=== PATIENT | female | born 2005 | race Two or more races ===

== ENCOUNTER 2025-01-22 18:12 | Inpatient (IN) | payer MEDICAID ==
[~2025-01-22] VITALS: Ht 160 cm; Wt 102.7 kg
[2025-01-22 18:47] LABS: BASOPHILS % (AUTO) 0.3 % (0-1); EOSINOPHILS # (AUTO) 0.3 X10'3 (0-0.9); EOSINOPHILS % (AUTO) 5.5 % (0-6); HEMATOCRIT 37.3 % (35.0-45.0); HEMOGLOBIN 12.3 g/dl (12.0-16.0); LYMPHOCYTES # (AUTO) 1.2 X10'3 (1.1-4.8); LYMPHOCYTES % (AUTO) 19.8 % (21-51); MEAN CORPUSCULAR HEMOGLOBIN 29.2 PG (27.0-31.0); MEAN CORPUSCULAR HGB CONC 32.9 g/dL (33.0-36.5); MEAN CORPUSCULAR VOLUME 88.6 FL (78-98); MEAN PLATELET VOLUME 8.6 FL (7.4-10.4); MONOCYTES # (AUTO) 0.3 X10'3 (0-0.9); MONOCYTES % (AUTO) 4.6 % (2-12); NEUTROPHILS # (AUTO) 4.4 X10'3 (1.8-7.7); NEUTROPHILS % (AUTO) 69.8 % (42-75); PLATELET COUNT 221 X10'3 (140-440); RED BLOOD COUNT 4.21 X10'6 (4.20-5.60); RED CELL DISTRIBUTION WIDTH 12.9 % (11.5-14.5); WHITE BLOOD COUNT 6.3 X10'3 (4.5-11.0)
[2025-01-22 19:04] LABS: ALANINE AMINOTRANSFERASE 269 U/L (12-78); ALBUMIN 3.3 G/DL (3.4-5.0); ALKALINE PHOSPHATASE 319 IU/L (20-180); ANION GAP 17 (8-16); ASPARTATE AMINO TRANSFERASE 125 U/L (10-37); BILIRUBIN,TOTAL 3.5 MG/DL (0.1-1.0); BLOOD UREA NITROGEN 12 MG/DL (7-18); BUN/CREATININE RATIO 16.2 (10.0-20.0); CHLORIDE 105 MMOL/L (99-107); CREATININE 0.74 MG/DL (0.40-0.90); GLUCOSE 50 MG/DL (70-104); LIPASE 38 U/L (16-77); POTASSIUM 3.9 MMOL/L (3.5-5.1); SODIUM 139 MMOL/L (135-145); TOTAL CARBON DIOXIDE 16.7 MMOL/L (24-32); TOTAL PROTEIN 6.5 G/DL (6.4-8.2); eCRCL 101 ML/MIN; eGFR > 90 ML/MIN
[2025-01-22] MEDS: dextrose 50%-water 50ml dispensing syringe IV ONE ×2 (20:39→22:58)
[2025-01-22 20:56] LABS: HCG SERUM QL NEGATIVE
[2025-01-22] MEDS ORDERED: acetaminophen 325mg tablet PO PRN ×2 (21:00)
[2025-01-22] MEDS ORDERED: potassium Cl 20 mEq SR tablet PO PRN ×2 (21:00)
[2025-01-22] MEDS ORDERED: ondansetron/PF 4mg/2ml inj IV PRN (21:00)
[2025-01-22] MEDS ORDERED: mag hydrox/Alum hydrox/simeth 30ml oral suspension PO PRN (21:00)
[2025-01-22] MEDS ORDERED: magnesium sulf-water 4G/100mL 100 ML IV PRN (21:00)
[2025-01-22] MEDS ORDERED: magnesium hydroxide 30ml (MOM) UD suspension PO PRN (21:00)
[2025-01-22] MEDS ORDERED: magnesium sulf-water 2g/50mL 50 ML IV PRN (21:00)
[2025-01-22] MEDS ORDERED: potassium Cl 40MEQ/1/2NS 520ml 520 ML IV PRN (21:00)
[2025-01-22 21:30] LABS: CHOL/HDL RATIO 3.7 (0.00-4.99); CHOLESTEROL 212 MG/DL (0-200); HDL CHOLESTEROL 57 MG/DL (35-60); LDL CHOLESTEROL 120 MG/DL (50-100); TRIGLYCERIDES 135 MG/DL (20-135)
[2025-01-22] MEDS ORDERED: glucagon, human recombinant 1mg kit SUBCUT PRN (21:30)
[2025-01-22] MEDS ORDERED: dextrose 50%-water 50ml dispensing syringe IV PRN (21:30)
[2025-01-22] MEDS ORDERED: DEXTROSE 15 GM of carb/4 tabs (each vial/BOTTLE has 4 tablets) PO PRN ×2 (21:30)
[2025-01-22] MEDS ORDERED: PNV1TABL87 PO (21:34)
[2025-01-22 21:38] LABS: HEMOGLOBIN A1C 4.5 % (4.5-6.2)
[2025-01-22 22:20] VITALS: BP 118/62; PULSE 72; RESP 16; TEMP 97.9; O2SAT 97
[2025-01-22] MEDS: dextrose 50%-water 50ml dispensing syringe IV PRN (23:02)
[2025-01-22] MEDS: normal saline 1000ml 1,000 ML IV SCH (23:16)
[2025-01-23] VITALS (14 sets, daily range): BP systolic 104–140; BP diastolic 50–79; PULSE 45–101; RESP 12–18; TEMP 97.6–98.3; O2SAT 97–100
[2025-01-23 02:45] LABS: BASOPHILS % (AUTO) 0.3 % (0-1); EOSINOPHILS # (AUTO) 0.8 X10'3 (0-0.9); EOSINOPHILS % (AUTO) 13.7 % (0-6); HEMATOCRIT 36.1 % (35.0-45.0); HEMOGLOBIN 12.2 g/dl (12.0-16.0); LYMPHOCYTES # (AUTO) 1.9 X10'3 (1.1-4.8); LYMPHOCYTES % (AUTO) 31.6 % (21-51); MEAN CORPUSCULAR HEMOGLOBIN 29.7 PG (27.0-31.0); MEAN CORPUSCULAR HGB CONC 33.9 g/dL (33.0-36.5); MEAN CORPUSCULAR VOLUME 87.8 FL (78-98); MEAN PLATELET VOLUME 8.5 FL (7.4-10.4); MONOCYTES # (AUTO) 0.5 X10'3 (0-0.9); MONOCYTES % (AUTO) 7.7 % (2-12); NEUTROPHILS # (AUTO) 2.9 X10'3 (1.8-7.7); NEUTROPHILS % (AUTO) 46.7 % (42-75); PLATELET COUNT 218 X10'3 (140-440); RED BLOOD COUNT 4.11 X10'6 (4.20-5.60); RED CELL DISTRIBUTION WIDTH 13.1 % (11.5-14.5); WHITE BLOOD COUNT 6.2 X10'3 (4.5-11.0)
[2025-01-23 03:10] LABS: ALANINE AMINOTRANSFERASE 235 U/L (12-78); ALBUMIN 3.3 G/DL (3.4-5.0); ALKALINE PHOSPHATASE 303 IU/L (20-180); ANION GAP 13 (8-16); ASPARTATE AMINO TRANSFERASE 95 U/L (10-37); BILIRUBIN,TOTAL 2.5 MG/DL (0.1-1.0); BLOOD UREA NITROGEN 7 MG/DL (7-18); BUN/CREATININE RATIO 9.6 (10.0-20.0); CALCIUM 8.2 MG/DL (8.5-10.1); CHLORIDE 105 MMOL/L (99-107); CREATININE 0.73 MG/DL (0.40-0.90); GLUCOSE 52 MG/DL (70-104); MAGNESIUM 1.4 MG/DL (1.5-2.4); POTASSIUM 3.6 MMOL/L (3.5-5.1); SODIUM 138 MMOL/L (135-145); TOTAL CARBON DIOXIDE 19.8 MMOL/L (24-32); TOTAL PROTEIN 6.6 G/DL (6.4-8.2); eCRCL 103 ML/MIN; eGFR > 90 ML/MIN
[2025-01-23 03:14] LABS: ACETAMINOPHEN < 2.0 UG/ML (10-30)
[2025-01-23] MEDS: dextrose 50%-water 50ml dispensing syringe IV ONE (03:20)
[2025-01-23 05:22] LABS: BILIRUBIN,URINE SMALL (Neg); CLARITY,URINE CLEAR (Clear); COLOR,URINE YELLOW (Yellow); GLUCOSE, URINE 100 mg/dl (Neg); KETONES,URINE >=80 mg/dl (Neg); LEUKOCYTE ESTERASE ,URINE SMALL (Neg); NITRITES, URINE NEGATIVE (Neg); OCCULT BLOOD,URINE MODERATE (Neg); PROTEIN,URINE NEGATIVE (Neg); UROBILINOGEN,URINE 0.2 E.U/dL (0.2-1.0)
[2025-01-23 05:25] LABS: UA COLLECTION TYPE NON-SPECIFIED
[2025-01-23 05:30] LABS: BACTERIA,URINE 1+ /HPF (Neg); RBC,URINE 50-100 /HPF (0-2); SQUAMOUS EPITHELIAL CELL,UR MANY /LPF (FEW); WBC,URINE 50-100 /HPF (0-4)
[2025-01-23 05:31] LABS: URINE AMPHETAMINE SCREEN NEGATIVE (Neg); URINE BARBITUATE SCREEN NEGATIVE (Neg); URINE BENZODIAZEPINES SCREEN NEGATIVE (Neg); URINE CANNABINOID SCREEN NEGATIVE (Neg); URINE COCAINE SCREEN NEGATIVE (Neg); URINE METHADONE SCREEN NEGATIVE (Neg); URINE OPIATE SCREEN NEGATIVE (Neg); URINE PHENCYCLIDINE SCREEN NEGATIVE (Neg)
[2025-01-23] MEDS ORDERED: glucagon, human recombinant 1mg kit ONE (07:54)
[2025-01-23] MEDS ORDERED: iohexol 300mg/ml 100ml inj. ONE (07:54)
[2025-01-23] MEDS ORDERED: levoFLOXACIN-Levaquin 500mg/D5 0 ML IV ONE (07:54)
[2025-01-23] MEDS: CefTRIAXone/D5W-Rocephin 1gm 50 ML IV SCH (08:00)
[2025-01-23] MEDS: K and/or MAG REPLACEMENT MC SCH (08:00)
[2025-01-23] MEDS: ringers solution, lacted 1,000 ML IV SCH (09:15)
[2025-01-23] MEDS ORDERED: ondansetron/PF 4mg/2ml inj IV PRN (09:15)
[2025-01-23] MEDS ORDERED: acetaminophen 1,000mg/100ml IV 100 ML IV PRN (09:15)
[2025-01-23] MEDS ORDERED: morphine 4 MG/ML inj SYRINge IV PRN (09:15)
[2025-01-23] MEDS ORDERED: meperidine/PF 100mg/ml syringe IV PRN ×3 (09:15)
[2025-01-23] MEDS ORDERED: proCHLORperazine 10 MG/2 ml inj IV PRN (09:15)
[2025-01-23] MEDS ORDERED: hydrALAZINE 20mg/ml inj. IV PRN (09:15)
[2025-01-23] MEDS ORDERED: labetalol 20mg/4ml (5mg/ml) syringe IV PRN (09:15)
[2025-01-23] MEDS ORDERED: morphine 2 MG/ML inj. syringe IV PRN (09:15)
[2025-01-23] MEDS ORDERED: fentaNYL/PF 50MCG/1 ML 2ML syringe ONE (10:04)
[2025-01-23] MEDS ORDERED: iohexol 300 MG/1 ML 50ml polymer ONE (10:18)
[2025-01-23] MEDS ORDERED: sevoflurane 250ml liquid IH ONE ×2 (10:21)
[2025-01-23] MEDS ORDERED: midazolam 1 mg/ML 2ml injection ONE (10:49)
[2025-01-23] MEDS ORDERED: propofol inj 20 ML IV ONE (10:50)
[2025-01-23] MEDS ORDERED: LIDOcaine 2% (20mg/ml) 5ml vial ONE (10:50)
[2025-01-23] MEDS ORDERED: rocuronium 10mg/ml inj IV ONE (10:50)
[2025-01-23] MEDS ORDERED: dexamethasone sod phosphate 4mg/ml inj. ONE (10:50)
[2025-01-23] MEDS ORDERED: ondansetron/PF 4mg/2ml inj ONE (10:51)
[2025-01-23] MEDS ORDERED: neostigmine methylsulfate 1 MG/ML 10ml vial ONE (11:02)
[2025-01-23] MEDS ORDERED: glycopyrrolate 0.2mg/ml inj ONE (11:02)
[2025-01-23] MEDS: magnesium Cl slow-release 64mg tablet PO PRN (12:47)
[2025-01-23] MEDS: metroNIDAZOLE-Flagyl 500mg/NS 100 ML IV SCH (12:58)
[2025-01-24] VITALS (22 sets, daily range): BP systolic 106–123; BP diastolic 48–72; PULSE 49–84; RESP 10–21; TEMP 98–98.8; O2SAT 96–100
[2025-01-24 06:02] LABS: BASOPHILS % (AUTO) 0.1 % (0-1); EOSINOPHILS # (AUTO) 0.2 X10'3 (0-0.9); EOSINOPHILS % (AUTO) 3.9 % (0-6); HEMOGLOBIN 11.9 g/dl (12.0-16.0); LYMPHOCYTES # (AUTO) 1.5 X10'3 (1.1-4.8); LYMPHOCYTES % (AUTO) 25.3 % (21-51); MEAN CORPUSCULAR HEMOGLOBIN 29.1 PG (27.0-31.0); MEAN PLATELET VOLUME 9.2 FL (7.4-10.4); MONOCYTES # (AUTO) 0.6 X10'3 (0-0.9); MONOCYTES % (AUTO) 9.2 % (2-12); NEUTROPHILS # (AUTO) 3.7 X10'3 (1.8-7.7); NEUTROPHILS % (AUTO) 61.5 % (42-75); PLATELET COUNT 239 X10'3 (140-440); RED BLOOD COUNT 4.09 X10'6 (4.20-5.60)
[2025-01-24 06:15] LABS: APTT 26 SECONDS (22-32); INR 1.1 INR; PROTHROMBIN TIME 11.4 SECONDS (9.0-12.0)
[2025-01-24 06:21] LABS: ALANINE AMINOTRANSFERASE 169 U/L (12-78); ALBUMIN 3.1 G/DL (3.4-5.0); ALBUMIN/GLOBULIN RATIO 0.9 (1.1-1.5); ALKALINE PHOSPHATASE 247 IU/L (20-180); ANION GAP 11 (8-16); ASPARTATE AMINO TRANSFERASE 45 U/L (10-37); BILIRUBIN,TOTAL 1.1 MG/DL (0.1-1.0); BLOOD UREA NITROGEN 8 MG/DL (7-18); BUN/CREATININE RATIO 10.8 (10.0-20.0); CALCIUM 8.1 MG/DL (8.5-10.1); CHLORIDE 107 MMOL/L (99-107); CREATININE 0.74 MG/DL (0.40-0.90); GLUCOSE 91 MG/DL (70-104); MAGNESIUM 1.2 MG/DL (1.5-2.4); POTASSIUM 3.7 MMOL/L (3.5-5.1); SODIUM 141 MMOL/L (135-145); TOTAL CARBON DIOXIDE 23.2 MMOL/L (24-32); TOTAL PROTEIN 6.5 G/DL (6.4-8.2); eCRCL 101 ML/MIN; eGFR > 90 ML/MIN
[2025-01-24 07:49] LABS: BILIRUBIN,URINE SMALL (Neg); CLARITY,URINE SLIGHTLY CLOUDY (Clear); COLOR,URINE YELLOW (Yellow); GLUCOSE, URINE NEGATIVE (Neg); KETONES,URINE >=80 mg/dl (Neg); LEUKOCYTE ESTERASE ,URINE SMALL (Neg); NITRITES, URINE NEGATIVE (Neg); OCCULT BLOOD,URINE NEGATIVE (Neg); PROTEIN,URINE NEGATIVE (Neg); UROBILINOGEN,URINE 0.2 E.U/dL (0.2-1.0)
[2025-01-24 08:20] LABS: UA COLLECTION TYPE NON-SPECIFIED
[2025-01-24 08:24] LABS: BACTERIA,URINE FEW /HPF (Neg); MUCUS STRANDS NONE SEEN /LPF (Neg); RBC,URINE NONE SEEN /HPF (0-2); SQUAMOUS EPITHELIAL CELL,UR MANY /LPF (FEW)
[2025-01-24 10:28] LABS: BILIRUBIN,URINE MODERATE (Neg); CLARITY,URINE CLOUDY (Clear); COLOR,URINE YELLOW (Yellow); GLUCOSE, URINE NEGATIVE (Neg); KETONES,URINE >=80 mg/dl (Neg); LEUKOCYTE ESTERASE ,URINE SMALL (Neg); NITRITES, URINE NEGATIVE (Neg); OCCULT BLOOD,URINE NEGATIVE (Neg); PROTEIN,URINE NEGATIVE (Neg); UROBILINOGEN,URINE 0.2 E.U/dL (0.2-1.0)
[2025-01-24 10:36] LABS: UA COLLECTION TYPE CLN CATCH MIDSTREAM
[2025-01-24 10:43] LABS: RBC,URINE NONE SEEN /HPF (0-2)
[2025-01-24 10:44] LABS: BACTERIA,URINE 1+ /HPF (Neg)
[2025-01-24 10:45] LABS: SQUAMOUS EPITHELIAL CELL,UR MANY /LPF (FEW)
[2025-01-24 10:46] LABS: TRANSITIONAL EPI CELLS,URINE FEW /HPF
[2025-01-24 10:47] LABS: RENAL CELLS, URINE FEW /HPF
[2025-01-24] MEDS: INDOCYANINE GREEN 25 MG/10 ML VIAL IV ONE (16:10)
[2025-01-24] MEDS ORDERED: LIDOcaine 1% (10mg/ml)w/preservative inj. 20ml MDV ONE (16:50)
[2025-01-24] MEDS ORDERED: BUPIVAcaine 2.5mg/ml inj 50ml vial (contains preservative) ONE (16:50)
[2025-01-24] MEDS: ringers solution, lacted 1,000 ML IV SCH (18:05)
[2025-01-24] MEDS ORDERED: HYDROmorphone/PF 0.2 MG/ML SYRINGE IV PRN ×2 (18:05)
[2025-01-24] MEDS ORDERED: morphine 4 MG/ML inj SYRINge IV PRN (18:05)
[2025-01-24] MEDS ORDERED: ondansetron/PF 4mg/2ml inj IV PRN (18:05)
[2025-01-24] MEDS ORDERED: morphine 2 MG/ML inj. syringe IV PRN (18:05)
[2025-01-24] MEDS ORDERED: sevoflurane 250ml liquid IH ONE (18:44)
[2025-01-24] MEDS ORDERED: fentaNYL/PF 50MCG/1 ML 2ML syringe ONE (18:45)
[2025-01-24] MEDS ORDERED: midazolam 1 mg/ML 2ml injection ONE (18:45)
[2025-01-24] MEDS ORDERED: propofol inj 20 ML IV ONE (18:45)
[2025-01-24] MEDS ORDERED: rocuronium 10mg/ml inj IV ONE (18:46)
[2025-01-24] MEDS ORDERED: ceFAZolin 1000mg inj ONE ×2 (19:00)
[2025-01-24] MEDS ORDERED: dexamethasone sod phosphate 4mg/ml inj. ONE (19:41)
[2025-01-24] MEDS ORDERED: ondansetron/PF 4mg/2ml inj ONE (19:41)
[2025-01-24] MEDS ORDERED: neostigmine methylsulfate 1 MG/ML 10ml vial ONE (19:43)
[2025-01-24] MEDS ORDERED: glycopyrrolate 0.2mg/ml inj ONE (19:43)
[2025-01-24] MEDS ORDERED: naloxone 0.4 mg/ml inj IV PRN (20:10)
[2025-01-24] MEDS ORDERED: oxyCODONE/APAP 5-325mg tablet PO PRN (20:10)
[2025-01-24] MEDS: acetaminophen 1,000mg/100ml IV 100 ML IV PRN (20:26)
[2025-01-24] MEDS: ketorolac trometh 30MG/ML vial 30 MG/ML VIAL IV ONE (20:27)
[2025-01-25 00:45] VITALS: BP 116/58; PULSE 52; RESP 18; TEMP 98.6; O2SAT 97
[2025-01-25 05:22] LABS: BASOPHILS % (AUTO) 0.2 % (0-1); EOSINOPHILS % (AUTO) 0.1 % (0-6); HEMATOCRIT 36.8 % (35.0-45.0); HEMOGLOBIN 12.2 g/dl (12.0-16.0); LYMPHOCYTES # (AUTO) 0.9 X10'3 (1.1-4.8); LYMPHOCYTES % (AUTO) 14.2 % (21-51); MEAN CORPUSCULAR HEMOGLOBIN 29.3 PG (27.0-31.0); MEAN CORPUSCULAR HGB CONC 33.2 g/dL (33.0-36.5); MEAN CORPUSCULAR VOLUME 88.3 FL (78-98); MEAN PLATELET VOLUME 9.1 FL (7.4-10.4); MONOCYTES # (AUTO) 0.2 X10'3 (0-0.9); MONOCYTES % (AUTO) 2.8 % (2-12); NEUTROPHILS # (AUTO) 5.3 X10'3 (1.8-7.7); NEUTROPHILS % (AUTO) 82.7 % (42-75); PLATELET COUNT 235 X10'3 (140-440); RED BLOOD COUNT 4.17 X10'6 (4.20-5.60); RED CELL DISTRIBUTION WIDTH 13.5 % (11.5-14.5); WHITE BLOOD COUNT 6.4 X10'3 (4.5-11.0)
[2025-01-25 05:39] LABS: ALANINE AMINOTRANSFERASE 144 U/L (12-78); ALBUMIN 3.1 G/DL (3.4-5.0); ALKALINE PHOSPHATASE 221 IU/L (20-180); ANION GAP 11 (8-16); ASPARTATE AMINO TRANSFERASE 59 U/L (10-37); BILIRUBIN,TOTAL 0.8 MG/DL (0.1-1.0); BLOOD UREA NITROGEN 9 MG/DL (7-18); CALCIUM 8.3 MG/DL (8.5-10.1); CHLORIDE 109 MMOL/L (99-107); CREATININE 0.69 MG/DL (0.40-0.90); GLUCOSE 94 MG/DL (70-104); MAGNESIUM 1.5 MG/DL (1.5-2.4); POTASSIUM 4.4 MMOL/L (3.5-5.1); SODIUM 141 MMOL/L (135-145); TOTAL CARBON DIOXIDE 20.9 MMOL/L (24-32); TOTAL PROTEIN 6.3 G/DL (6.4-8.2); eCRCL 108 ML/MIN; eGFR > 90 ML/MIN
[2025-01-25 06:00] VITALS: BP 112/58; PULSE 57; RESP 17; TEMP 98.8; O2SAT 97
[2025-01-25 07:36] LABS: HBSAG SCREEN Negative (Negative); HEP A AB, IGM Negative (Negative); HEP B SURF AB Non Reactive (.); HEPATITIS C VIRUS ANTIBODY Non Reactive (Non Reactive)
[2025-01-25 08:30] VITALS: RESP 16; O2SAT 98
[2025-01-25 11:00] VITALS: BP 113/58; PULSE 70; RESP 18; TEMP 98.2; O2SAT 98
== END 2025-01-25 12:50 | disposition home or self-care (01) | DRG 263 ==
LOC: ER 18:14 → ED HOLD 20:59 → UNDOADMIN 20:59 → ED HOLD 21:02 → SUR 3N 22:18 → ED HOLD 22:18
PROVIDERS: ADMIT Internal Medicine; ATTEND Family Medicine
PROC: 8E0W4CZ Robotic Assisted Procedure of Trunk Region, Percutaneous Endoscopic Approach (ICD-10-PCS; 2025-01-23)
PROC: BF121ZZ Fluoroscopy of Gallbladder using Low Osmolar Contrast (ICD-10-PCS; 2025-01-23)
PROC: 0FC98ZZ Extirpation of Matter from Common Bile Duct, Via Natural or Artificial Opening Endoscopic (ICD-10-PCS; 2025-01-23)
PROC: 0FT44ZZ Resection of Gallbladder, Percutaneous Endoscopic Approach (ICD-10-PCS; principal; 2025-01-23 10:21)
DX: K80.63 Calculus of gallbladder and bile duct with acute cholecystitis with obstruction (principal); E66.01 Morbid (severe) obesity due to excess calories; E78.5 Hyperlipidemia, unspecified; Z87.891 Personal history of nicotine dependence; Z68.55 Body mass index [BMI] pediatric, 120% of the 95th percentile for age to less than 140% of the 95th percentile for age
CPT/HCPCS: 36415; 74181; 76700; 80053; 80061; 80305; 80329; 81001; 82248; 82948; 83036; 83690; 83735; 84703; 85025; 85610; 85730; 86706; 86709; 86803; 87081; 87340; 87522; 99285; A4215; A4618; A7000; C1769; G0378; J0131; J0690; J0696; J1100; J1610; J1885; J1956; J2003; J2250; J2405; J2704; J2710; J3010; J3490; J7030; J7120; Q9967